=== PATIENT | male | born 2000 | race Two or more races ===

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

== ENCOUNTER 2020-04-26 19:55 | Emergency (ER) | payer BC, OTHER ==
[~2020-04-26] VITALS: Ht 167.6 cm; Wt 68.9 kg
[2020-04-26 23:26] VITALS: BP 117/75
== END 2020-04-26 23:36 | disposition home or self-care (01) ==
LOC: EDBD 19:55 → ER 20:00
DX: S43.402A Unspecified sprain of left shoulder joint, initial encounter (principal); S93.401A Sprain of unspecified ligament of right ankle, initial encounter; M54.2 Cervicalgia; R51.9 Headache, unspecified; V23.4XXA Motorcycle driver injured in collision with car, pick-up truck or van in traffic accident, initial encounter; Y93.I9 Activity, other involving external motion; Y92.89 Other specified places as the place of occurrence of the external cause; Y99.8 Other external cause status
CPT/HCPCS: 70450; 72125; 72128; 72131; 73030; 73070; 73610

== ENCOUNTER 2021-12-13 23:56 | Emergency (ER) | payer BC, OTHER ==
[~2021-12-13] VITALS: Ht 167.6 cm; Wt 71.2 kg
[2021-12-13 23:58] VITALS: BP 127/55
[2021-12-14] MEDS ORDERED: BACITRACIN TOP OINT 1 UD PKG TOP ONE (02:30)
[2021-12-14] MEDS ORDERED: TETANUS-DIPTH-ACEL PERTUSSIS 0.5ML SYR Tdap IM ONE (02:30)
[2021-12-14] MEDS ORDERED: KETOROLAC TROMETH 30 MG/ML 1ML VIAL IM ONE (02:30)
[2021-12-14] MEDS ORDERED: NEOMYCIN-BACITRACIN-POLYM 15GM TOP OINT TOP ONE (03:07)
[2021-12-14] MEDS ORDERED: NEOMYCIN-BACITRACIN-POLYM UNITDOSE PKG TOP OINT TOP ONE (03:15)
== END 2021-12-14 05:36 | disposition home or self-care (01) ==
LOC: ER 23:56
DX: S80.211A Abrasion, right knee, initial encounter (principal); S80.212A Abrasion, left knee, initial encounter; S20.419A Abrasion of unspecified back wall of thorax, initial encounter; S09.90XA Unspecified injury of head, initial encounter; V28.4XXA Motorcycle driver injured in noncollision transport accident in traffic accident, initial encounter; Y93.89 Activity, other specified; Y92.410 Unspecified street and highway as the place of occurrence of the external cause; Y99.8 Other external cause status
CPT/HCPCS: 70450; 71250; 72125; 73110; 73130; 73610; 73630; 74176; 90471; 90715; 96372; 99284; J1885